=== PATIENT | female | born 1975 | race American Indian/Alaskan Native ===

== ENCOUNTER 2020-03-24 09:45 | Day surgery (SDC) | payer OTHER ==
[2020-03-23 09:02] LABS: Hematocrit 40.3 % (30.3-42.9); Hemoglobin 13.6 gm/dl (10.1-14.3); Mean Corpuscular HGB Conc 34 % (30-34); Mean Corpuscular Volume 90 fl (79-97); Platelet Count 325 K/mm3 (140-440); Red Blood Count 4.47 M/mm3 (3.65-5.03); Red Cell Distribution Width 14.1 % (13.2-15.2)
[2020-03-23 09:23] LABS: BUN/Creatinine Ratio 19; Blood Urea Nitrogen 15 mg/dL (7-17); Calcium 9.3 mg/dL (8.4-10.2); Hemolysis Index 11
--- NOTE | 2020-03-24 08:07 | Anesthesia Day of Surgery ---
Anesthesia Day of Surgery - Day of Surgery Patient Examined: Yes Patient H&P Reviewed: Yes Patient is NPO: Yes
--- NOTE | 2020-03-24 08:08 | Anesthesia Consultation ---
Anesthesia Consult and Med Hx Date of service: 03/24/20 - Airway Anesthetic Teeth Evaluation: Chipped, Bridges ROM Head & Neck: Adequate Mental/Hyoid Distance: Adequate Mallampati Class: Class II Intubation Access Assessment: Good - Pre-Operative Health Status ASA Pre-Surgery Classification: ASA2 Proposed Anesthetic Plan: General - Pulmonary Hx Smoking: No Hx Sleep Apnea: (SNORES) - Cardiovascular System Hx Hypertension: Yes (+2FS) - Central Nervous System Hx Back Pain: Yes (LOWER BACK) Hx Psychiatric Problems: No - Endocrine Hx Non-Insulin Dependent Diabetes: Yes - Hematic Hx Anemia: No Hx Sickle Cell Disease: No - Other Systems Hx Alcohol Use: Yes (OCC. WINE) Hx Substance Use: No Hx Cancer: No Hx Obesity: Yes
[~2020-03-24 09:45] MED LIST: ACETAMINOPHEN 500 MG TAB PO ONE; CELECOXIB 200 MG CAP PO NR; GABAPENTIN 300 MG CAP PO NR; HYDROmorphone 1 MG/1 ML INJ IV PRN; LACTATED RINGERS 1,000 ML IV SCH; LIDOCAINE 1%/EPINEPHRINE 1:100,000 VIAL (20 ML) INFILTRATI ONE; MAGNESIUM OXIDE 400 MG TAB PO ONE; MIDAZOLAM 2 MG/2 ML INJ IV NR; ONDANSETRON 4 MG/2 ML INJ IV PRN; SODIUM CHLORIDE 0.9% IRR 1,500 ML BOTTLE IR ONE; ceFAZolin/Water 2 GM/20 ML 2 GM/20 ML SYRINGE IV NR
[2020-03-24] MEDS ORDERED: ROCURONIUM 50 MG/5 ML INJ IV ONE (11:24)
[2020-03-24] MEDS ORDERED: MIDAZOLAM 2 MG/2 ML INJ ONE (11:24)
[2020-03-24] MEDS ORDERED: propofoL 200 MG/20 ML VIAL IV ONE (11:24)
[2020-03-24] MEDS ORDERED: LIDOCAINE MPF (2%) 20 MG/1 ML VIAL 5 ML ONE (11:24)
[2020-03-24] MEDS ORDERED: dexAMETHasone 20 MG/5 ML VIAL ONE ×2 (11:25→20:36)
[2020-03-24] MEDS ORDERED: KETAMINE/STERILE WATER 50 MG/ML SYRINGE ONE (11:25)
[2020-03-24] MEDS ORDERED: HYDROmorphone 1 MG/1 ML INJ ONE ×5 (11:26→17:04)
[2020-03-24] MEDS ORDERED: SODIUM CHLORIDE 0.9% 1000 ML 1,000 ML, EPINEPHrine/PF 1 mg/1 mL 1 MG, LIDOCAINE 1% 20 m... IJ SCH (11:30)
[2020-03-24] MEDS ORDERED: LIDOCAINE 1%/EPINEPHRINE 1:100,000 VIAL (20 ML) INFILTRATI ONE ×2 (12:14→12:30)
[2020-03-24] MEDS ORDERED: SODIUM CHLORIDE 0.9% IRR 1,500 ML BOTTLE IR ONE (13:05)
[2020-03-24] MEDS ORDERED: fentaNYL 100 MCG/2 ML INJ ONE ×2 (18:21→18:58)
[2020-03-24] MEDS ORDERED: SUGAMMADEX SODIUM 200 MG/2 ML VIAL IV ONE (18:28)
[2020-03-24] MEDS ORDERED: ALBUTEROL 8.5 GM INHALATION IH ONE (19:08)
[2020-03-24] MEDS ORDERED: EPINEPHrine RACEMIC 2.25% 0.5ML NEBU IH ONE ×4 (19:33→20:12)
[2020-03-24] MEDS ORDERED: SODIUM CHLORIDE FOR INHALATION NEBU 3 ML ONE ×2 (19:34→20:10)
[2020-03-24] MEDS ORDERED: MIDAZOLAM 2 MG/2 ML INJ IV SCH (19:48)
[2020-03-24] MEDS: HYDROmorphone 1 MG/1 ML INJ IV PRN ×2 (19:50→20:43)
--- NOTE | 2020-03-24 19:58 | Operative Report ---
Operative Report Operative Report: Plastic Surgery Operative Note Preoperative Diagnosis: Unacceptable cosmetic appearance Postopertive Diagnosis: Same Procedure: Full lipoabdominoplasty; Liposuction of the posterior waist and [place] butt lift with fat grafting to the butt and hips Surgeon: Dr. Frances Navarro Shaker Operator: GRAHAM Jaramillo Anesthesia: General endotracheal EBL: 100cc Indications: This patient is a 44 year old AAF who presented with a complaint of lost buttock fullness and volume after childbearing as well as excess fat and skin of the abdomen which got a lot worse with the way her scar healed. Since then she has also had stretch jacob on her abdomen and loose skin that affect her self confidence. She e desires a flat abdomen, and also to use the fat for grafting to her buttocks and hips. We discussed the benefits and risks of surgery including infection, bleeding, hematoma, seroma, scarring, fat necrosis, fat embolus, blood clots, pulmonary embolus, fat resorption, skin or umbilical necrosis, wound dehiscence, asymmetry and the need for further surgery. Patient understands and accepts these risks and desires to proceed with surgery. Informed consent was obtained. Procedure: After marking in preoperative holding the patient was brought into the operating room and placed supine on the OR table. After induction of adequate general endotracheal anesthesia, the patient's chest was prepped and draped in the usual sterile surgical fashion. To begin, markings were refreshed and 1% lidocaine with epinephrine was injected into the incisions. Using an 11 blade, cannula entry incisions were made in the lower abdomen, and 2 L of tumescent solution was infiltrated into the tissues of the abdomen and flanks. Power assisted liposcution was performed until aspirate was blood-tinged. We then began the tummy tuck portion of the procedure, creating a lower abdominal incision using a 10 blade, which was carried through subcutaneous tissue using the electrocautery. This dissection along the rectus fascia was carried cephalad to the xiphoid process. After which point rectus diastasis (measuring 5 cm at its widest) was repaired using 0 PDO Quill suture in 3 layers. The bed was then placed in a beach chair position and the lower abdominal pannus was marked and sharply excised. A 19 Fr Tao drain was placed and secured with a 2-0 Nylon suture and we began closure of her incisions in 3 layers beginning with a 0 PDO Quill suture to approximate Rabia's fascia follwed by 3-0 Monoderm Quill in 2 layers. The umbilicus was delivered through the abdominal skin flap and secured with 2-0 Monocryl and 4-0 subcuticular sutures. All incisions were then sealed with Dermabond. The patient was then placed in the prone position and once again cannula entry sites were injected with local anesthesia and opened with an 11 blade. 1 L of tumescent solution was infiltrated into the subcutaneous tissue of the posterior waist and lower back, and power assisted liposuction used to remove excess fat. Once satisfied with the contour we began the fat grafting portion of the procedure. Using blunt cannulas, fat was injected into the subcutaneous tissue of the buttocks and hips bilaterally until a desireable contour was achieved. A total of 1800cc of pure fat was injected into each side. Once fat grafting was complete, 4-0 Monocryl was used to close all cannula entry points. All areas where incisions were placed were then dressed with abdominal pads and the patient was then awakened from general anesthesia and her compression garment was placed. The patient was complaining of difficulty breathing and was noted to be tachycardic with fluctuating O2 saturations as low as 91 on room air. Given the nature of her surgery the decision was made to get a stat CT Angio of the chest to rule out pulmonary embolus. She was then transferred to CT scanner on a monitor with O2 via facemask. After imaging study was done she was transferred to PACU where she was given racemic epinephrine x2 and a total of 10mg of Decadron and monitored closely. Stridorous breathing resolved and she maintained O2 saturation on room air. Her condition improved markedly thereafter and she was discharged from recovery to home in stable condition.
[2020-03-24] MEDS ORDERED: INSULIN LISPRO 100 UNIT/ML SUB-Q ONE (20:08)
[2020-03-24] MEDS ORDERED: dexAMETHasone 4 MG/ML VIAL IV ONE (20:37)
--- NOTE | 2020-03-24 21:10 | Cat Scan Report ---
CTA CHEST WITH IV CONTRAST INDICATION: Status post liposuction and abdominal wall surgery/diff breathing CONTRAST: 100 cc Omnipaque 350 IV COMPARISON: None available. Three-plane MIP reconstructions were produced. All CT scans at this location are performed using CT d ose reduction for ALARA by means of automated exposure control. NOTE: Resolution is decreased and artifact is introduced by the patient's size. FINDINGS: No significant axillary lesions are seen. Views of the upper abdomen show mild fatty infilt ration of the liver. No internal upper, middle acute abnormalities are seen. However, there is rather diffuse subcutaneous emphysema seen in a bubbly pattern. There is also diffuse subcutaneous edema or inflammation, particularly in areas associated with this subcutaneous emphysema. I do not see signif icant separate areas emphysema and the chest with only a tiny amount seen anteriorly extending from t he abdominal region in the lower central chest. No pneumothorax or pneumomediastinum are seen. No obv ious pneumoperitoneum is noted. Lung jeronimo show no obvious nodules or masses. Minimal atelectasis th e left lower lobe. No areas of consolidation or other significant acute infiltrates are seen. No medi astinal or hilar masses are noted. Possibly trace pleural effusion on the left. No obvious endobronch ial lesions are seen. Aorta shows no aneurysmal dilatation or evidence of dissection. Adequate opacification of the pulmonary arterial system was achieved. I do not see convincing evidenc e of pulmonary thromboembolism. IMPRESSION: 1. No evidence of pulmonary thrombus was 2. No acute abnormalities are seen in the chest or within the upper abdomen 3. Extensive upper abdominal subcutaneous findings as above thought accounted for by the type of surg jyoti. Discussed with Dr. Navarro Signer Name: Dat Burr MD Signed: 03/24/2020 9:06 PM Workstation Name: [id number]
[2020-03-24] MEDS ORDERED: SODIUM CHLORIDE 0.9% 1000 ML 1,000 ML ONE (21:48)
--- NOTE | 2020-03-24 22:31 | Cat Scan Report ---
CT NECK WITH INTRAVENOUS CONTRAST AND MULTIPLANAR RECONSTRUCTION CLINICAL HISTORY: AIRWAY NARROWING, VOCAL CORD TRAUMA TECHNIQUE: 2.5 mm thick contiguous axial scans were obtained from the skull base down to the aortic arch during intravenous contrast administration. In addition to evaluation of axial source images sagittal and co amy multiplanar reconstructions were produced and reviewed for this report. FINDINGS: No abnormalities are seen along the course of the airway. Nasopharynx, oropharynx, hypopharynx, laryn x and visualized portions of the subglottic airway all have an unremarkable appearance. There is no i ndication of glottic or subglottic stenosis. There is no evidence of vocal cord paralysis. There is no indication of cervical lymphadenopathy. No abnormalities are seen in evaluation of the oral cavity and tongue. The floor the mouth has a norm al appearance. The parotid and submandibular salivary glands have a normal appearance. Evaluation of the nasal cavity reveals no abnormality. The paranasal sinuses are free from inflammato ry mucosal disease. Evaluation of the orbits reveals no abnormality. The thyroid gland is normal in size and homogeneous in attenuation. No focal thyroid lesions are iden tified. Evaluation of the cervical spine reveals no significant abnormality. Normal alignment is maintained. No significant degenerative changes are identified. Evaluation of the lung apices reveals no abnormality. There is no indication of lung nodule or infilt rate. The visualized portions of the superior mediastinum have an unremarkable appearance. Enhancement of normal vascular structures is demonstrated. No areas of abnormal contrast enhancement are identified. IMPRESSION: 1. No significant abnormalities are demonstrated on CT neck with intravenous contrast. 2. There is no indication of vocal cord paralysis or other abnormality along the course of the airway . All CT imaging studies performed at this facility utilize dose modulation, iterative reconstruction o r weight based dosing, if appropriate, to obtain the lowest achievable radiation dose. Signer Name: Felipe Gregory MD Signed: 03/24/2020 10:27 PM Workstation Name: [id number]
--- NOTE | 2020-03-24 22:53 | Post Anesthesia Evaluation ---
- Post Anesthesia Evaluation Patient Participated: Yes Airway Patent: Yes Stable Respiratory Function: Yes (Pt with significant stridor upon extubation. MUCH improved.) Nausea/Vomiting: No Temp > 96.8F: Yes Pain Manageable: Yes Adequeate Hydration: Yes Anesthesia Complications: No Block Receding Appropriately: Not Applicable Patient on Ventilator: No
[2020-03-25 00:09] VITALS: BP 120/82
== END 2020-03-24 09:46 | disposition home or self-care (01) ==
LOC: OR 09:45
PROVIDERS: ATTEND Plastic Surgery
DX: Z41.1 Encounter for cosmetic surgery (principal); I10 Essential (primary) hypertension; Z11.59 Encounter for screening for other viral diseases; G47.30 Sleep apnea, unspecified; E66.9 Obesity, unspecified; E11.9 Type 2 diabetes mellitus without complications; Z72.89 Other problems related to lifestyle; Z79.899 Other long term (current) drug therapy; Z87.440 Personal history of urinary (tract) infections; Z98.890 Other specified postprocedural states; Z68.31 Body mass index [BMI] 31.0-31.9, adult
CPT/HCPCS: 15771; 15772; 15830; 15847; 36415; 70491; 71275; 80048; 82962; 84703; 85027; J0171; J0690; J1100; J1170; J2250; J2704; J3010; J7030; J7120; Q9967; U0003; J1815

== ENCOUNTER 2020-04-08 11:45 | Inpatient (IN) | payer OTHER ==
--- NOTE | 2020-04-08 11:56 | Event Note ---
ED Screening Note ED Screening Note: DVT in 2001 after a knee surgery left left pain that began three days ago states she has left leg swelling no recent travel no SOB no CP PMHx DM, HTN no allergies to meds LNMP: 03/17/2020 This initial assessment/diagnostic orders/clinical plan/treatment(s) is/are subject to change based on patients health status, clinical progression and re- assessment by fellow clinical providers in the ED. Further treatment and workup at subsequent clinical providers discretion. Patient/guardian urged not to elope from the ED as their condition may be serious if not clinically assessed and managed. Initial orders include: labs, US
[2020-04-08 12:24] LABS: Basophils % (Auto) 0.4 % (0.0-1.8); Eosinophils # (Auto) 0.3 K/mm3 (0.0-0.4); Eosinophils % (Auto) 4.2 % (0.0-4.3); Hematocrit 29.9 % (30.3-42.9); Lymphocytes # (Auto) 1.5 K/mm3 (1.2-5.4); Mean Corpuscular HGB Conc 34 % (30-34); Mean Corpuscular Volume 91 fl (79-97); Monocytes # (Auto) 0.4 K/mm3 (0.0-0.8); Monocytes % (Auto) 5.7 % (0.0-7.3); Platelet Count 452 K/mm3 (140-440); Red Blood Count 3.27 M/mm3 (3.65-5.03); Red Cell Distribution Width 15.2 % (13.2-15.2)
[2020-04-08 12:35] LABS: INR 1.1 (0.87-1.13)
[2020-04-08 12:36] LABS: Partial Thromboplastin Time 31.5 Sec. (24.2-36.6)
[2020-04-08 12:44] LABS: Alanine Aminotransferase 19 units/L (7-56); Albumin 3.5 g/dL (3.9-5); BUN/Creatinine Ratio 18; Blood Urea Nitrogen 14 mg/dL (7-17); Calcium 8.9 mg/dL (8.4-10.2); Hemolysis Index 0
[2020-04-08] MEDS ORDERED: POTASSIUM CHLORIDE ER 20 MEQ TAB PO ONE ×2 (12:47→16:15)
--- NOTE | 2020-04-08 13:21 | Vascular Lab Report ---
DUPLEX DOPPLER LOWER EXTREMITY VEINS, BILATERAL INDICATION: LLE pain and swelling, RLE pain. TECHNIQUE: Duplex doppler imaging was performed through the veins of both lower extremities using venous tammy luis and other maneuvers. COMPARISON: None available. FINDINGS: Right Common Femoral vein: Echogenic material with lack of compressibility is noted. Right Superficial Femoral vein: Negative. Right Popliteal vein: Negative. Right Calf veins: Negative. Left Common Femoral vein: Echogenic material is present with lack of compressibility Left Superficial Femoral vein: Negative. Left Popliteal vein: Negative. Left Calf veins: Negative. Additional findings: Extensive echogenic material with lack of compressibility both greater saphenous veins IMPRESSION: 1. Deep venous and superficial venous thrombosis as noted involving both lower extremities Signer Name: Gregorio Beltre MD Signed: 04/08/2020 1:17 PM Workstation Name: [id number]
--- NOTE | 2020-04-08 14:14 | Emergency Department Report ---
ED General Adult HPI - General Chief complaint: Extremity Injury, Lower Stated complaint: LEGS SWOLLEN Time Seen by Provider: 04/08/20 11:54 Source: patient Mode of arrival: Ambulatory Limitations: No Limitations - History of Present Illness Initial comments: This is a 44-year-old female with left greater than right leg pain for the last several days. She is not on an anticoagulant. She has a history of DVT in 2001. She was anticoagulated at that time. She denies a history of pulmonary embolism. She denies chest pain or shortness of breath. She states she is not coughing. Said no hemoptysis. Her leg pain involves both sides but predominantly the left. She states that it "feels like a vein". Patient is 2 weeks status post abdominoplasty. -: Gradual, days(s) Radiation: non-radiation Quality: aching Consistency: intermittent Improves with: none Worsens with: none Associated Symptoms: denies other symptoms Treatments Prior to Arrival: none - Related Data Home Medications Medication Instructions Recorded Confirmed Last Taken Empagliflozin [Jardiance] 25 mg PO DAILY 03/17/20 03/24/20 03/23/20 09:00 Hydrochlorothiazide 12.5 mg PO DAILY 03/17/20 03/24/20 03/23/20 09:00 Losartan [Cozaar] 50 mg PO DAILY 03/17/20 03/24/20 03/23/20 09:00 Semaglutide [Ozempic] 0.5 mg SUB-Q 1XW 03/17/20 03/24/20 03/22/20 09:00 Allergies Allergy/AdvReac Type Severity Reaction Status Date / Time No Known Allergies Allergy Verified 04/08/20 11:46 ED Review of Systems ROS: Stated complaint: LEGS SWOLLEN Other details as noted in HPI Constitutional: denies: chills, fever Eyes: denies: eye pain, eye discharge, vision change ENT: denies: ear pain, throat pain Respiratory: denies: cough, shortness of breath, wheezing Cardiovascular: denies: chest pain, palpitations Endocrine: no symptoms reported Gastrointestinal: denies: abdominal pain, nausea, diarrhea Genitourinary: denies: urgency, dysuria, discharge Musculoskeletal: as per HPI. denies: back pain, joint swelling, arthralgia Skin: denies: rash, lesions Neurological: denies: headache, weakness, paresthesias Psychiatric: denies: anxiety, depression Hematological/Lymphatic: denies: easy bleeding, easy bruising ED Past Medical Hx - Past Medical History Hx Hypertension: Yes (+2FS) Hx Diabetes: Yes Hx GERD: No Hx Sickle Cell Disease: No Hx Tuberculosis: No Hx HIV: No - Surgical History Additional Surgical History: KNEE SURGERY/ TUMMY TUCK 2 WEEKS AGO - Social History Smoking Status: Never Smoker Substance Use Type: None - Medications Home Medications: Home Medications Medication Instructions Recorded Confirmed Last Taken Type Empagliflozin [Jardiance] 25 mg PO DAILY 03/17/20 03/24/20 03/23/20 09:00 History Hydrochlorothiazide 12.5 mg PO DAILY 03/17/20 03/24/20 03/23/20 09:00 History Losartan [Cozaar] 50 mg PO DAILY 03/17/20 03/24/20 03/23/20 09:00 History Semaglutide [Ozempic] 0.5 mg SUB-Q 1XW 03/17/20 03/24/20 03/22/20 09:00 History ED Physical Exam - General Limitations: No Limitations General appearance: alert, in no apparent distress - Head Head exam: Present: atraumatic, normocephalic - Eye Eye exam: Present: normal appearance. Absent: scleral icterus - ENT ENT exam: Present: mucous membranes moist - Neck Neck exam: Present: normal inspection - Respiratory Respiratory exam: Present: normal lung sounds bilaterally. Absent: respiratory distress - Cardiovascular Cardiovascular Exam: Present: regular rate, normal rhythm. Absent: systolic murmur, diastolic murmur, rubs, gallop - GI/Abdominal GI/Abdominal exam: Present: soft, normal bowel sounds, other (Abdominoplasty drain). Absent: distended, tenderness, guarding, rebound - Extremities Exam Extremities exam: Present: normal capillary refill, other (There is bilateral swelling and venous engorgement of the veins of the lower extremity. It is most prominent in the left thigh. The left calf is also swollen. There is tenderness bilaterally) - Back Exam Back exam: Present: normal inspection. Absent: CVA tenderness (R), CVA tenderness (L), muscle spasm, paraspinal tenderness, vertebral tenderness - Neurological Exam Neurological exam: Present: alert, oriented X3, CN II-XII intact. Absent: motor sensory deficit - Psychiatric Psychiatric exam: Present: normal affect, normal mood - Skin Skin exam: Present: warm, dry, intact, normal color. Absent: rash ED Course Vital Signs 04/08/20 11:50 Temperature 99.2 F Pulse Rate 87 Respiratory 20 Rate Blood Pressure 128/50 O2 Sat by Pulse 98 Oximetry - Reevaluation(s) Reevaluation #1: Nurses directed to gown patient. Standard heparin drip will be initiated. Vascular consult. Consider CTA. Admit to the hospitalist service. 04/08/20 14:17 ED Medical Decision Making - Lab Data Result diagrams: 04/08/20 12:01 04/08/20 12:01 Laboratory Results - last 24 hr 04/08/20 04/08/20 04/08/20 12:01 12:01 12:01 WBC 6.6 RBC 3.27 L Hgb 10.0 L Hct 29.9 L MCV 91 MCH 31 MCHC 34 RDW 15.2 Plt Count 452 H Lymph % (Auto) 23.0 [place] % (Auto) 5.7 Eos % (Auto) 4.2 Baso % (Auto) 0.4 Lymph # 1.5 [place] # 0.4 Eos # 0.3 Baso # 0.0 Seg Neutrophils % 66.7 Seg Neutrophils # 4.4 PT 14.0 INR 1.10 APTT 31.5 Sodium 138 Potassium 3.0 L Chloride 99.1 Carbon Dioxide 25 Anion Gap 17 BUN 14 Creatinine 0.8 Estimated GFR > 60 BUN/Creatinine Ratio 18 Glucose 96 Calcium 8.9 Total Bilirubin 0.90 AST 15 ALT 19 Alkaline Phosphatase 40 Total Protein 6.5 Albumin 3.5 L Albumin/Globulin Ratio 1.2 HCG, Qual 04/08/20 12:01 WBC RBC Hgb Hct MCV MCH MCHC RDW Plt Count Lymph % (Auto) [place] % (Auto) Eos % (Auto) Baso % (Auto) Lymph # [place] # Eos # Baso # Seg Neutrophils % Seg Neutrophils # PT INR APTT Sodium Potassium Chloride Carbon Dioxide Anion Gap BUN Creatinine Estimated GFR BUN/Creatinine Ratio Glucose Calcium Total Bilirubin AST ALT Alkaline Phosphatase Total Protein Albumin Albumin/Globulin Ratio HCG, Qual Negative Critical care attestation.: If time is entered above; I have spent that time in minutes in the direct care of this critically ill patient, excluding procedure time. ED Disposition Clinical Impression: Hypokalemia DVT, bilateral lower limbs Qualifiers: Affected thrombotic vein of extremity: femoral Chronicity: acute Qualified Code(s): I82.413 - Acute embolism and thrombosis of femoral vein, bilateral Anemia Qualifiers: Anemia type: unspecified type Qualified Code(s): D64.9 - Anemia, unspecified Disposition: OP ADMIT IP TO THIS HOSP Is pt being admited?: Yes Does the pt Need Aspirin: Yes Condition: Stable Referrals: PRIMARY CARE, [Primary Care Provider] - 3-5 Days Time of Disposition: 15:38
[2020-04-08] MEDS ORDERED: HEPARIN 10,000 UNITS/10 ML VIAL IV ONE (14:24)
[2020-04-08 15:11] LABS: Hematocrit 27.5 % (30.3-42.9); Hemoglobin 9.1 gm/dl (10.1-14.3)
--- NOTE | 2020-04-08 15:13 | XRay Report ---
CHEST 1 VIEW INDICATION: hypertension. COMPARISON: None FINDINGS: Support devices: None. Heart: Within normal limits. Lungs/Pleura: No acute air space or interstitial disease. Additional findings: None. IMPRESSION: 1. No acute findings. Signer Name: Eze Whittington MD Signed: 04/08/2020 3:08 PM Workstation Name: [id number]
[2020-04-08] MEDS: HEPARIN/ 0.45% NACL DRIP 25,000 UNIT/500 ML BAG IV SCH (15:20)
[2020-04-08 15:23] LABS: INR 1.1 (0.87-1.13); Partial Thromboplastin Time 30.8 Sec. (24.2-36.6)
[2020-04-08] MEDS ORDERED: HYDROmorphone 1 MG/1 ML INJ IV PRN (16:15)
[2020-04-08] MEDS ORDERED: HYDROmorphone 1 MG/1 ML INJ ONE (16:23)
[2020-04-08] MEDS: oxyCODONE /ACETAMINOPHEN 5-325MG TAB PO PRN (20:27)
[2020-04-08] MEDS ORDERED: ACETAMINOPHEN 325 MG TAB PO PRN (21:27)
[2020-04-08] MEDS ORDERED: ZOLPIDEM 5 MG TAB PO PRN (21:27)
[2020-04-08] MEDS: WARFARIN 7.5 MG TAB PO SCH (23:25)
[2020-04-08] MEDS: FAMOTIDINE 20 MG/2 ML INJ IV SCH (23:25)
[2020-04-08] MEDS: SODIUM CHLORIDE 0.45% 1000 ML 1,000 ML IV SCH (23:28)
[2020-04-08] MEDS: LOSARTAN 50 MG TAB PO SCH (23:47)
[2020-04-09] MEDS: INSULIN LISPRO 100 UNIT/ML SUB-Q SCH ×4 (00:40→22:20)
[2020-04-09 06:22] LABS: Basophils % (Auto) 0.5 % (0.0-1.8); Eosinophils # (Auto) 0.4 K/mm3 (0.0-0.4); Eosinophils % (Auto) 6.4 % (0.0-4.3); Hematocrit 24.1 % (30.3-42.9); Hemoglobin 7.9 gm/dl (10.1-14.3); Lymphocytes # (Auto) 2.7 K/mm3 (1.2-5.4); Lymphocytes % (Auto) 47.3 % (13.4-35.0); Mean Corpuscular HGB Conc 33 % (30-34); Mean Corpuscular Volume 93 fl (79-97); Monocytes # (Auto) 0.5 K/mm3 (0.0-0.8); Monocytes % (Auto) 9.2 % (0.0-7.3); Platelet Count 380 K/mm3 (140-440); Red Cell Distribution Width 15.4 % (13.2-15.2)
--- NOTE | 2020-04-09 06:32 | Event Note ---
Date: 04/08/20 See H/p in reports Sukumar LE DVT IVC filter// IR consult IV HEparin drip
[2020-04-09 06:51] LABS: Alanine Aminotransferase 14 units/L (7-56); Albumin 2.7 g/dL (3.9-5); BUN/Creatinine Ratio 20; Blood Urea Nitrogen 12 mg/dL (7-17); Calcium 8.2 mg/dL (8.4-10.2); Hemolysis Index 1
--- NOTE | 2020-04-09 08:59 | Progress Note ---
Assessment and Plan Assessment and plan: Bilateral DVT lower ext Doppler ultrasound confirms DVT Continue Heparin drip Vasc surgeon to see Patient had DVT lower ext in 2001 treated with anticoagulation Hypokalemia Replace and repeat Anemia Likely chronic Check Fe, TIBC,Vit B12,folate Hypertension Resume home meds Diabetes mellitus type 2 A1c 2.9, will repeat Hold anti-diabetics Full code status. History Interval history: Bilateral legs pain and swelling no chest pain Hospitalist Physical - Physical exam Narrative exam: GEN: Not in acute distress, obese, lying in bed HEENT: Normocephalic, atraumatic, Neck: supple, No JVD Lungs: Clear to auscultation bilaterally, heart;S1 and S2 reg, no murmurs, rubs or gallop Abd:soft, non tender, non distended, normal bowel sounds, Ext: Bilateral edema of legs, no clubbing, no cyanosis, Neuro: Awake,alert,oriented X3 , no focal signs, - Constitutional Vitals: Temp Pulse Resp BP Pulse Ox 98.3 F 71 20 96/41 98 04/09/20 08:04 04/09/20 08:04 04/09/20 08:04 04/09/20 08:04 04/09/20 08:04 Results - Labs CBC & Chem 7: 04/09/20 05:19 04/09/20 05:19 Labs: Laboratory Last Values WBC 5.7 K/mm3 (4.5-11.0) 04/09/20 05:19 RBC 2.60 M/mm3 (3.65-5.03) L 04/09/20 05:19 Hgb 7.9 gm/dl (10.1-14.3) L 04/09/20 05:19 Hct 24.1 % (30.3-42.9) L 04/09/20 05:19 MCV 93 fl (79-97) 04/09/20 05:19 MCH 31 pg (28-32) 04/09/20 05:19 MCHC 33 % (30-34) 04/09/20 05:19 RDW 15.4 % (13.2-15.2) H 04/09/20 05:19 Plt Count 380 K/mm3 (140-440) 04/09/20 05:19 Lymph % (Auto) 47.3 % (13.4-35.0) H 04/09/20 05:19 [place] % (Auto) 9.2 % (0.0-7.3) H 04/09/20 05:19 Eos % (Auto) 6.4 % (0.0-4.3) H 04/09/20 05:19 Baso % (Auto) 0.5 % (0.0-1.8) 04/09/20 05:19 Lymph # 2.7 K/mm3 (1.2-5.4) 04/09/20 05:19 [place] # 0.5 K/mm3 (0.0-0.8) 04/09/20 05:19 Eos # 0.4 K/mm3 (0.0-0.4) 04/09/20 05:19 Baso # 0.0 K/mm3 (0.0-0.1) 04/09/20 05:19 Seg Neutrophils % 36.6 % (40.0-70.0) L 04/09/20 05:19 Seg Neutrophils # 2.1 K/mm3 (1.8-7.7) 04/09/20 05:19 PT 14.0 Sec. (12.2-14.9) 04/08/20 14:55 INR 1.10 (0.87-1.13) 04/08/20 14:55 APTT 30.8 Sec. (24.2-36.6) 04/08/20 14:55 Heparin Anti-Xa Level 0.81 U.I./ml (0.3-0.7) H 04/09/20 05:19 Sodium 139 mmol/L (137-145) 04/09/20 05:19 Potassium 3.2 mmol/L (3.6-5.0) L 04/09/20 05:19 Chloride 103.8 mmol/L (98-107) 04/09/20 05:19 Carbon Dioxide 26 mmol/L (22-30) 04/09/20 05:19 Anion Gap 12 mmol/L 04/09/20 05:19 BUN 12 mg/dL (7-17) 04/09/20 05:19 Creatinine 0.6 mg/dL (0.7-1.2) L 04/09/20 05:19 Estimated GFR > 60 ml/min 04/09/20 05:19 BUN/Creatinine Ratio 20 % 04/09/20 05:19 Glucose 78 mg/dL (65-100) 04/09/20 05:19 POC Glucose 87 (70-105) 04/09/20 08:04 Hemoglobin A1c 2.9 % (4-6) L 04/09/20 05:19 Calcium 8.2 mg/dL (8.4-10.2) L 04/09/20 05:19 Total Bilirubin 0.60 mg/dL (0.1-1.2) 04/09/20 05:19 AST 13 units/L (5-40) 04/09/20 05:19 ALT 14 units/L (7-56) 04/09/20 05:19 Alkaline Phosphatase 31 units/L (35-129) L 04/09/20 05:19 Total Protein 5.6 g/dL (6.3-8.2) L 04/09/20 05:19 Albumin 2.7 g/dL (3.9-5) L 04/09/20 05:19 Albumin/Globulin Ratio 0.9 % 04/09/20 05:19 HCG, Qual Negative (Negative) 04/08/20 12:01 Whalen/IV: IV Catheter Type [Right INT / Saline Lock Antecubital] Active Medications - Current Medications Current Medications: Generic Name Dose Route Start Last Admin Trade Name Freq PRN Reason Stop Dose Admin Acetaminophen 650 mg 04/08/20 21:27 Tylenol PO Q4H PRN Pain MILD(1-3)/Fever >100.5/TALAMANTES Famotidine 20 mg 04/08/20 22:00 04/08/20 23:25 Pepcid IV 20 mg BID CASS Administration Hydromorphone HCl 1 mg 04/08/20 16:15 04/08/20 16:32 Dilaudid IV 1 mg Q3H PRN Administration Pain , Severe (7-10) Heparin Sodium/Sodium Chloride 25,000 unit in 500 mls @ 23 mls/hr 04/08/20 15:00 04/08/20 23:37 Heparin/ 0.45% Nacl-25,000 Unit/500 Ml IV 1,050 units/hr TITR CASS 21 mls/hr Titration Protocol 1,150 UNITS/HR Sodium Chloride 1,000 mls @ 75 mls/hr 04/08/20 22:00 06/04/20 23:28 Nacl 0.45% 1000 Ml IV 75 mls/hr DIRECT CASS Administration Insulin Human Lispro 0 unit 04/08/20 22:00 04/09/20 08:51 Humalog SUB-Q Not Given ACHS [facility] Protocol Losartan Potassium 100 mg 04/08/20 22:00 04/08/20 23:47 Cozaar PO Not Given DAILY [facility] Miscellaneous Medication 0.5 mg 04/11/20 21:30 Semaglutide [Ozempic] SUB-Q 1XW [facility] Ondansetron HCl 4 mg 04/08/20 21:27 Zofran IV Q8H PRN Nausea And Vomiting Oxycodone/Acetaminophen 2 tab 04/08/20 20:10 04/08/20 20:27 Percocet 5/325 PO 2 tab Q6H PRN Administration Pain, Moderate (4-6) Potassium Chloride 40 meq 04/09/20 08:00 K-Dur PO 04/09/20 12:01 Q4H CASS Sodium Chloride 10 ml 04/08/20 22:00 04/08/20 23:29 Sodium Chloride Flush Syringe 10 Ml IV 10 ml BID CASS Administration Sodium Chloride 10 ml 04/08/20 21:27 Sodium Chloride Flush Syringe 10 Ml IV PRN PRN LINE FLUSH Warfarin Sodium 7.5 mg 04/08/20 22:00 04/08/20 23:25 Coumadin PO 7.5 mg DAILY@1700 CASS Administration Zolpidem Tartrate 5 mg 04/08/20 21:27 Ambien PO QHS PRN Insomnia
[2020-04-09] MEDS: LOSARTAN 50 MG TAB PO SCH (09:28)
[2020-04-09] MEDS: FAMOTIDINE 20 MG/2 ML INJ IV SCH (09:53)
[2020-04-09] MEDS: POTASSIUM CHLORIDE ER 20 MEQ TAB PO SCH ×2 (09:53→12:32)
[2020-04-09] MEDS: ONDANSETRON 4 MG/2 ML INJ IV PRN (09:53)
[2020-04-09] MEDS: oxyCODONE /ACETAMINOPHEN 5-325MG TAB PO PRN (10:00)
[2020-04-09 11:08] LABS: Iron 34 ug/dL (37-170); Total Iron Binding Capacity 212 mcg/dL (250-450)
--- NOTE | 2020-04-09 12:06 | History and Physical Report ---
CHIEF COMPLAINT: Bilateral lower extremity swelling ____ 1 week. HISTORY OF PRESENT ILLNESS: A 44-year-old female with swelling of both lower extremities, especially the left greater than right. The patient has a history of DVT in ____ leg pain involves both the legs extending up to the groin. The patient has a history of diabetes and hypertension. PAST MEDICAL HISTORY: As mentioned, hypertension and diabetes. PAST SURGICAL HISTORY: Knee surgery, tummy tuck 2 weeks ago. SOCIAL HISTORY: Never a smoker. FAMILY HISTORY: Hypertension. REVIEW OF SYSTEMS: Significant for bilateral lower extremity swelling. Recent tummy tuck with drains still present. Tummy tuck about a week ago. No fever or chills. Otherwise, review of systems negative. PHYSICAL EXAMINATION: GENERAL: Middle-aged female, cooperative during examination. VITAL SIGNS: Temperature 97.7, pulse rate is 78, respiratory rate is 16, sats are 98%, blood pressure is 105/48. HEENT: Unremarkable. Pupils equal and reactive. NECK: Supple, no lymphadenopathy, no thyromegaly. LUNGS: Clear to auscultation with good air entry. CARDIOVASCULAR SYSTEM: S1, S2 heard. No gallop, no murmur, no rub. Apical impulse in the left fifth intercostal space in the midclavicular line. ABDOMEN: Soft and benign. No hepatosplenomegaly. ____ Normal bowel sounds are noted. EXTREMITIES: Both lower extremities are swollen up from the mid calf up to the ____ thigh bilaterally. Nontender. ____ pulses are felt. CENTRAL NERVOUS SYSTEM: Alert and oriented x 3. Nonfocal exam. SKIN: Normal. LABORATORY DATA: Significant for hemoglobin of 9.1 and hematocrit of 27.5. Electrolytes are normal. Potassium is ____. Lower extremity ____ shows bilateral deep vein thrombosis. Right common femoral and right superficial femoral vein are negative. Right common femoral vein echogenic material ____ noted. Left common femoral vein echogenic material ____. Left superficial femoral vein is negative. Left popliteal vein is negative. Left calf vein is negative. Additional findings of extensive echogenic material ____ greater saphenous veins. Final impression is deep venous and superficial venous thrombosis involving both lower extremities. ASSESSMENT AND PLAN: 1. Bilateral deep venous thrombosis. The patient was initiated on IV heparin and also Coumadin for better control of the deep vein thrombosis. IR consult was requested for possible ____ placement. The patient has a tendency for severe pulmonary embolism. 2. Hypertension. Continue antihypertensives. 3. Type 2 diabetes. Continue oral hypoglycemics and coverage. Check hemoglobin A1c. 4. Deep venous thrombosis prophylaxis. The patient on IV heparin and also gastrointestinal prophylaxis. JOB# [id number] VSM/NTS
[2020-04-09] MEDS: SODIUM CHLORIDE 0.45% 1000 ML 1,000 ML IV SCH (12:33)
[2020-04-09] MEDS: HEPARIN/ 0.45% NACL DRIP 25,000 UNIT/500 ML BAG IV SCH (13:46)
[2020-04-09] MEDS: WARFARIN 7.5 MG TAB PO SCH (19:00)
[2020-04-09] MEDS: FAMOTIDINE 20 MG TAB PO SCH (22:21)
--- NOTE | 2020-04-10 00:15 | Consultation ---
History of Present Illness - Reason for Consult Consult date: 04/10/20 Bilateral Lower Extremity DVT Requesting physician: MAXIME TIDWELL - History of Present Illness \ Patient is a 44-year-old female with a history of DVT in her left lower extremity back in 2001. She had an additional DVT in 2002 both were related to surgical procedures. The patient went to the emergency department with a complaint of 4 days of bilateral lower extremity swelling with her left thigh significantly larger than her right. She states that her left foot began to swell prior to the entire leg swelling although she began wearing compression socks. She did take Coumadin for DVT back in the past however she was no longer on it. The patient had an abdominoplasty performed approximately 2 weeks ago and states that she has been doing some ambulating shortly after after the opera tion however. Shortness of breath or chest pain. She has no additional complaints at this time. Past History Past Medical History: hypertension, hyperlipidemia Medications and Allergies Allergies Allergy/AdvReac Type Severity Reaction Status Date / Time No Known Allergies Allergy Verified 04/08/20 11:46 Home Medications Medication Instructions Recorded Confirmed Last Taken Type Empagliflozin [Jardiance] 25 mg PO DAILY 03/17/20 03/24/20 03/23/20 09:00 History Hydrochlorothiazide 12.5 mg PO DAILY 03/17/20 03/24/20 03/23/20 09:00 History Losartan [Cozaar] 50 mg PO DAILY 03/17/20 03/24/20 03/23/20 09:00 History Semaglutide [Ozempic] 0.5 mg SUB-Q 1XW 03/17/20 03/24/20 03/22/20 09:00 History Active Meds: Active Medications Acetaminophen (Tylenol) 650 mg PO Q4H PRN PRN Reason: Pain MILD(1-3)/Fever >100.5/TALAMANTES Famotidine (Pepcid) 20 mg PO BID CASS Last Admin: 04/09/20 22:21 Dose: 20 mg Documented by: Hydromorphone HCl (Dilaudid) 1 mg IV Q3H PRN PRN Reason: Pain , Severe (7-10) Last Admin: 04/08/20 16:32 Dose: 1 mg Documented by: Heparin Sodium/Sodium Chloride (Heparin/ 0.45% Nacl-25,000 Unit/500 Ml) 25,000 unit in 500 mls @ 23 mls/hr IV TITR [facility]; Protocol Last Titration: 04/09/20 18:53 Dose: 950 units/hr, 19 mls/hr Documented by: Sodium Chloride (Nacl 0.45% 1000 Ml) 1,000 mls @ 75 mls/hr IV DIRECT [facility] Last Admin: 04/09/20 12:33 Dose: 75 mls/hr Documented by: Insulin Human Lispro (Humalog) 0 unit SUB-Q ACHS [facility]; Protocol Last Admin: 04/09/20 22:20 Dose: Not Given Documented by: Losartan Potassium (Cozaar) 100 mg PO DAILY [facility] Last Admin: 04/09/20 09:28 Dose: Not Given Documented by: Miscellaneous Medication (Semaglutide [Ozempic]) 0.5 mg SUB-Q 1XW [facility] Ondansetron HCl (Zofran) 4 mg IV Q8H PRN PRN Reason: Nausea And Vomiting Last Admin: 04/09/20 09:53 Dose: 4 mg Documented by: Oxycodone/Acetaminophen (Percocet 5/325) 2 tab PO Q6H PRN PRN Reason: Pain, Moderate (4-6) Last Admin: 04/09/20 10:00 Dose: 2 tab Documented by: Sodium Chloride (Sodium Chloride Flush Syringe 10 Ml) 10 ml IV BID [facility] Last Admin: 04/09/20 22:21 Dose: 10 ml Documented by: Sodium Chloride (Sodium Chloride Flush Syringe 10 Ml) 10 ml IV PRN PRN PRN Reason: LINE FLUSH Last Admin: 04/09/20 09:54 Dose: 10 ml Documented by: Warfarin Sodium (Coumadin) 7.5 mg PO DAILY@1700 [facility] Last Admin: 04/09/20 19:00 Dose: 7.5 mg Documented by: Zolpidem Tartrate (Ambien) 5 mg PO QHS PRN PRN Reason: Insomnia Exam - Constitutional Vitals: Temp Pulse Resp BP Pulse Ox 98.2 F 69 16 93/48 100 04/09/20 23:16 04/09/20 23:16 04/09/20 23:16 04/09/20 23:16 04/09/20 23:16 General appearance: Present: no acute distress - Neck Neck: Present: supple - Cardiovascular Rhythm: regular - Extremities Extremities: no ischemia, pulses intact (Palpable DP pulses bilaterally) Extremity abnormal: edema (Mild edema in the left lower extremity, left thigh is tender to palpation) - Musculoskeletal Musculoskeletal: strength equal bilaterally - Psychiatric Psychiatric: appropriate mood/affect Results - Labs CBC & Chem 7: 04/10/20 04:37 04/10/20 04:37 Labs: Abnormal lab results 04/09/20 04/09/20 04/09/20 Range/Units 05:19 05:19 05:19 RBC 2.60 L (3.65-5.03) M/mm3 Hgb 7.9 L (10.1-14.3) gm/dl Hct 24.1 L (30.3-42.9) % RDW 15.4 H (13.2-15.2) % Lymph % (Auto) 47.3 H (13.4-35.0) % Early % (Auto) 9.2 H (0.0-7.3) % Eos % (Auto) 6.4 H (0.0-4.3) % Seg Neutrophils % 36.6 L (40.0-70.0) % Heparin Anti-Xa Level (0.3-0.7) U.I./ml Potassium 3.2 L (3.6-5.0) mmol/L Creatinine 0.6 L (0.7-1.2) mg/dL POC Glucose (70-105) Hemoglobin A1c 2.9 L (4-6) % Calcium 8.2 L (8.4-10.2) mg/dL Iron (37-170) ug/dL TIBC (250-450) mcg/dL Alkaline Phosphatase 31 L (35-129) units/L Total Protein 5.6 L (6.3-8.2) g/dL Albumin 2.7 L (3.9-5) g/dL 04/09/20 04/09/20 04/09/20 Range/Units 05:19 10:12 10:12 RBC (3.65-5.03) M/mm3 Hgb (10.1-14.3) gm/dl Hct (30.3-42.9) % RDW (13.2-15.2) % Lymph % (Auto) (13.4-35.0) % Early % (Auto) (0.0-7.3) % Eos % (Auto) (0.0-4.3) % Seg Neutrophils % (40.0-70.0) % Heparin Anti-Xa Level 0.81 H 0.78 H (0.3-0.7) U.I./ml Potassium (3.6-5.0) mmol/L Creatinine (0.7-1.2) mg/dL POC Glucose (70-105) Hemoglobin A1c (4-6) % Calcium (8.4-10.2) mg/dL Iron 34 L (37-170) ug/dL TIBC 212 L (250-450) mcg/dL Alkaline Phosphatase (35-129) units/L Total Protein (6.3-8.2) g/dL Albumin (3.9-5) g/dL 04/09/20 04/09/20 Range/Units 17:48 20:23 RBC (3.65-5.03) M/mm3 Hgb (10.1-14.3) gm/dl Hct (30.3-42.9) % RDW (13.2-15.2) % Lymph % (Auto) (13.4-35.0) % Early % (Auto) (0.0-7.3) % Eos % (Auto) (0.0-4.3) % Seg Neutrophils % (40.0-70.0) % Heparin Anti-Xa Level 0.29 L (0.3-0.7) U.I./ml Potassium (3.6-5.0) mmol/L Creatinine (0.7-1.2) mg/dL POC Glucose 114 H (70-105) Hemoglobin A1c (4-6) % Calcium (8.4-10.2) mg/dL Iron (37-170) ug/dL TIBC (250-450) mcg/dL Alkaline Phosphatase (35-129) units/L Total Protein (6.3-8.2) g/dL Albumin (3.9-5) g/dL - Imaging and Cardiology Venous US: report reviewed, image reviewed Assessment and Plan Patient is a 44-year-old female with a history of previous DVTs in her left lower extremity who presents with extensive acute bilateral lower extremity DVTs involving the femoral popliteal veins as well as the tibial veins and SVTs approximately 2 weeks after abdominoplasty. At this time she is not a candidate for thrombolysis as this has the potential for bleeding secondary to her recent operation. She is on a heparin drip and had an initial drop in her hemoglobin without any obvious signs of bleeding so this may have been a lab or dilutional however given her previous medical history of hypertension and her current relative hypotension with elevated heart rate this is likely accurate. If she continues to show active signs of bleeding she may require placement of an IVC filter and cessation of anticoagulation. If her hemoglobin stabilizes I will recommend converting her to oral anticoagulation with Eliquis 5 mg p.o. BID. for minimum of 3 to 6 months. She should also have a hematology evaluation to rule out a hypercoagulable disorder prior to stopping her anticoagulation. I will also have her follow-up in the office in 2 weeks to evaluate her symptoms. If the patient continues to have significant pain and swelling at that time I may consider performing a percutaneous procedure to debulk the thrombus with possible mechanical thrombectomy as well as thrombolytics. I discussed this plan with the patient who expressed understanding and agrees with the plan. I provided her with a card with our office information as well as discount cards for a 30-day free supply of Eliquis and the insurance discount card.
[2020-04-10 05:59] LABS: Hematocrit 24.2 % (30.3-42.9); Hemoglobin 7.9 gm/dl (10.1-14.3); Mean Corpuscular HGB Conc 33 % (30-34); Mean Corpuscular Volume 94 fl (79-97); Platelet Count 407 K/mm3 (140-440); Red Blood Count 2.59 M/mm3 (3.65-5.03); Red Cell Distribution Width 15.2 % (13.2-15.2)
[2020-04-10 06:08] LABS: INR 1.1 (0.87-1.13)
[2020-04-10 06:15] LABS: BUN/Creatinine Ratio 13; Blood Urea Nitrogen 9 mg/dL (7-17); Calcium 8.3 mg/dL (8.4-10.2); Hemolysis Index 3
[2020-04-10] MEDS: ONDANSETRON 4 MG/2 ML INJ IV PRN (07:21)
[2020-04-10] MEDS: INSULIN LISPRO 100 UNIT/ML SUB-Q SCH ×2 (08:25→12:52)
[2020-04-10] MEDS ORDERED: DOCUSATE SODIUM 100 MG CAP PO SCH (09:00)
[2020-04-10] MEDS ORDERED: POLYETHYLENE GLYCOL 3350 17 GM POWDER PO PRN (09:36)
[2020-04-10] MEDS: LOSARTAN 50 MG TAB PO SCH (09:46)
[2020-04-10] MEDS: FAMOTIDINE 20 MG TAB PO SCH (09:47)
--- NOTE | 2020-04-10 11:18 | Progress Note ---
Hospitalist Physical - Constitutional Vitals: Temp Pulse Resp BP Pulse Ox 98.9 F 66 20 96/47 98 04/10/20 07:17 04/10/20 09:01 04/10/20 07:17 04/10/20 07:17 04/10/20 07:17 General appearance: Present: no acute distress Results - Labs CBC & Chem 7: 04/10/20 04:37 04/10/20 04:37 Labs: Laboratory Last Values WBC 6.2 K/mm3 (4.5-11.0) 04/10/20 04:37 RBC 2.59 M/mm3 (3.65-5.03) L 04/10/20 04:37 Hgb 7.9 gm/dl (10.1-14.3) L 04/10/20 04:37 Hct 24.2 % (30.3-42.9) L 04/10/20 04:37 MCV 94 fl (79-97) 04/10/20 04:37 MCH 31 pg (28-32) 04/10/20 04:37 MCHC 33 % (30-34) 04/10/20 04:37 RDW 15.2 % (13.2-15.2) 04/10/20 04:37 Plt Count 407 K/mm3 (140-440) 04/10/20 04:37 Lymph % (Auto) 47.3 % (13.4-35.0) H 04/09/20 05:19 Hardy % (Auto) 9.2 % (0.0-7.3) H 04/09/20 05:19 Eos % (Auto) 6.4 % (0.0-4.3) H 04/09/20 05:19 Baso % (Auto) 0.5 % (0.0-1.8) 04/09/20 05:19 Lymph # 2.7 K/mm3 (1.2-5.4) 04/09/20 05:19 Hardy # 0.5 K/mm3 (0.0-0.8) 04/09/20 05:19 Eos # 0.4 K/mm3 (0.0-0.4) 04/09/20 05:19 Baso # 0.0 K/mm3 (0.0-0.1) 04/09/20 05:19 Seg Neutrophils % 36.6 % (40.0-70.0) L 04/09/20 05:19 Seg Neutrophils # 2.1 K/mm3 (1.8-7.7) 04/09/20 05:19 PT 14.0 Sec. (12.2-14.9) 04/10/20 04:37 INR 1.10 (0.87-1.13) 04/10/20 04:37 APTT 30.8 Sec. (24.2-36.6) 04/08/20 14:55 Heparin Anti-Xa Level 0.52 U.I./ml (0.3-0.7) 04/09/20 23:51 Sodium 140 mmol/L (137-145) 04/10/20 04:37 Potassium 3.6 mmol/L (3.6-5.0) 04/10/20 04:37 Chloride 105.4 mmol/L (98-107) 04/10/20 04:37 Carbon Dioxide 26 mmol/L (22-30) 04/10/20 04:37 Anion Gap 12 mmol/L 04/10/20 04:37 BUN 9 mg/dL (7-17) 04/10/20 04:37 Creatinine 0.7 mg/dL (0.7-1.2) 04/10/20 04:37 Estimated GFR > 60 ml/min 04/10/20 04:37 BUN/Creatinine Ratio 13 % 04/10/20 04:37 Glucose 114 mg/dL (65-100) H 04/10/20 04:37 POC Glucose 135 (70-105) H 04/10/20 08:31 Hemoglobin A1c 2.9 % (4-6) L 04/09/20 05:19 Calcium 8.3 mg/dL (8.4-10.2) L 04/10/20 04:37 Iron 34 ug/dL (37-170) L 04/09/20 10:12 TIBC 212 mcg/dL (250-450) L 04/09/20 10:12 Ferritin 174.8 ng/mL (13.0-400.0) 04/09/20 10:12 Total Bilirubin 0.60 mg/dL (0.1-1.2) 04/09/20 05:19 AST 13 units/L (5-40) 06/05/20 05:19 ALT 14 units/L (7-56) 04/09/20 05:19 Alkaline Phosphatase 31 units/L (35-129) L 04/09/20 05:19 Total Protein 5.6 g/dL (6.3-8.2) L 04/09/20 05:19 Albumin 2.7 g/dL (3.9-5) L 04/09/20 05:19 Albumin/Globulin Ratio 0.9 % 04/09/20 05:19 Vitamin B12 502.3 pg/mL (211-911) 04/09/20 10:12 Folate 12.84 ng/mL (7.3-26.0) 04/09/20 10:12 HCG, Qual Negative (Negative) 04/08/20 12:01 Whalen/IV: Voiding Method Toilet IV Catheter Type [Right INT / Saline Lock Antecubital] Active Medications - Current Medications Current Medications: Generic Name Dose Route Start Last Admin Trade Name Freq PRN Reason Stop Dose Admin Acetaminophen 650 mg 04/08/20 21:27 Tylenol PO Q4H PRN Pain MILD(1-3)/Fever >100.5/TALAMANTES Docusate Sodium 100 mg 04/10/20 09:00 04/10/20 09:47 Colace PO 100 mg BID CASS Administration Famotidine 20 mg 04/09/20 22:00 04/10/20 09:47 Pepcid PO 20 mg BID CASS Administration Hydromorphone HCl 1 mg 04/08/20 16:15 04/08/20 16:32 Dilaudid IV 1 mg Q3H PRN Administration Pain , Severe (7-10) Heparin Sodium/Sodium Chloride 25,000 unit in 500 mls @ 23 mls/hr 04/08/20 15:00 04/10/20 00:55 Heparin/ 0.45% Nacl-25,000 Unit/500 Ml IV 950 units/hr TITR CASS 19 mls/hr Titration Protocol 1,150 UNITS/HR Sodium Chloride 1,000 mls @ 75 mls/hr 04/08/20 22:00 04/09/20 12:33 Nacl 0.45% 1000 Ml IV 75 mls/hr DIRECT CASS Administration Insulin Human Lispro 0 unit 04/08/20 22:00 04/10/20 08:25 Humalog SUB-Q Not Given ACHS CASS Protocol Losartan Potassium 100 mg 04/08/20 22:00 04/10/20 09:46 Cozaar PO 100 mg DAILY CASS Administration Ondansetron HCl 4 mg 04/08/20 21:27 04/10/20 07:21 Zofran IV 4 mg Q8H PRN Administration Nausea And Vomiting Oxycodone/Acetaminophen 2 tab 04/08/20 20:10 04/09/20 10:00 Percocet 5/325 PO 2 tab Q6H PRN Administration Pain, Moderate (4-6) Polyethylene Glycol 17 gm 04/10/20 09:36 04/10/20 09:47 Miralax 3350 PO 17 gm QDAY PRN Administration Constipation Sodium Chloride 10 ml 04/08/20 22:00 04/10/20 10:06 Sodium Chloride Flush Syringe 10 Ml IV Not Given BID CASS Sodium Chloride 10 ml 04/08/20 21:27 04/09/20 09:54 Sodium Chloride Flush Syringe 10 Ml IV 10 ml PRN PRN Administration LINE FLUSH Warfarin Sodium 10 mg 04/10/20 17:00 Coumadin PO DAILY@1700 CASS Zolpidem Tartrate 5 mg 04/08/20 21:27 Ambien PO QHS PRN Insomnia Nutrition/Malnutrition Assess - Dietary Evaluation Nutrition/Malnutrition Findings: Nutrition Notes Start: 04/09/20 12:41 Freq: Status: Active Protocol: Document 04/09/20 12:41 LM (Rec: 04/09/20 12:45 LM [id number]) Nutrition Notes Need for Assessment generated from: Education Initial or Follow up Brief Note Subjective/Other Information DNI screen. Pt is eating well and with no wt loss. Educated pt on vitamin K/Coumadin interaction. #1 Nutrition Diagnosis Food and nutrition-related knowledge deficit Etiology no prior vitamin K/Coumadin interaction education As Evidenced by Signs and Symptoms pt wanting education Nutrition Intervention Teaching Recipient Patient Learning Readiness Good Teaching Methods Discussion,Handout Response to Teaching Verbalize understanding Education Handouts Provided Vitamin K and Interactions Barriers to Learning No Barriers RD phone number provided Yes Patient aware of follow up options Yes Revisit per MD consult or patient Sign Off request:
[2020-04-10] MEDS: oxyCODONE /ACETAMINOPHEN 5-325MG TAB PO PRN (14:58)
[2020-04-10 15:14] LABS: Hematocrit 26.2 % (30.3-42.9); Hemoglobin 8.6 gm/dl (10.1-14.3)
--- NOTE | 2020-04-10 15:19 | Discharge Summary ---
Providers - Providers Date of Admission: 04/08/20 15:39 Date of discharge: 04/10/20 Attending physician: MAXIME TIDWELL 04/08/20 15:36 Consult to Physician [CONS] Urgent Comment: Consulting Provider: BRYON BUNN Physician Instructions: Reason For Exam: Extensive DVT Primary care physician: ADOLFO KEE Hospitalization Condition: Fair Hospital course: Patient is 44-year-old female with pain both legs, left worse than right pain for several days. She states she had a DVT in 2001, was on anticoagulation and completed treatment. She denies a history of pulmonary embolism. She denies chest pain or shortness of breath. She was seen and evaluated in Emergency Department. Doppler revealed DVT both lower extremities. She was admitted, evaluated by Vasc Surgeon. Vascular surgeon recommended Eliquis and outpatient follow up. She was anemic, but stool occult blood negative, so was discharged home on Eliquis. Bilateral DVT lower ext Doppler ultrasound confirms DVT Treated with Heparin drip,converted to Eliquis Hypokalemia Replaced Anemia Likely chronic Checked Fe, TIBC,Vit B12,folate Hypertension Resumed home meds Diabetes mellitus type 2 Total time spent on discharge, 33 mins Disposition: DC-01 TO HOME OR SELFCARE Core Measure Documentation - Palliative Care Palliative Care/ Comfort Measures: Not Applicable - Core Measures Any of the following diagnoses?: DVT/PE - VTE Discharge Requirements Deep Vein Thrombosis/Pulmonary Embolism Present on Admission: Yes Has pt received <5 days of overlap therapy or INR<2.0: No Anticoagulant overlap therapy prescribed at discharge: No Contraindication No Overlap Therapy order at DC: Not Indicated (Eliquis) Exam - Constitutional Vitals: Temp Pulse Resp BP Pulse Ox 98.9 F 66 20 96/47 98 04/10/20 07:17 04/10/20 09:01 04/10/20 07:17 04/10/20 07:17 04/10/20 07:17 Plan Activity: advance as tolerated Diet: low fat, low cholesterol, low salt Additional Instructions: 1.Follow up with PCP in 1 week. 2.Follow up with Dr. Wei, Vasc Surg in 1 week. 3.Follow up with Maintenance Superintendent of choice or Dr. Baxter,Maintenance Superintendent. Plan of Treatment: 1.Follow up with PCP in 1 week. 2.Follow up with Dr. Wei Vasc Surg in 1 week 3.Follow up with Maintenance Superintendent of choice or Dr. Baxter,Maintenance Superintendent. Follow up with: PRIMARY CARE, [Referring] - 3-5 Days Prescriptions: Apixaban [Eliquis] 5 mg PO Q12HR #60 tablet Famotidine [Pepcid] 20 mg PO BID #60 tablet traMADoL [Ultram 50 MG tab] 50 mg PO Q8H PRN #10 tablet PRN Reason: Pain
[2020-04-10] MEDS ORDERED: APIXABAN 5 MG TAB PO SCH (16:00)
[2020-04-10 16:17] VITALS: BP 108/49
[2020-04-10] MEDS ORDERED: WARFARIN 10 MG TAB PO SCH (17:00)
[2020-04-11] MEDS ORDERED: SEMAGLUTIDE 0.5 MG SUB-Q SCH (21:30)
== END 2020-04-10 17:19 | disposition home or self-care (01) | DRG 301 ==
LOC: ED 11:45 → 4A 15:39
PROVIDERS: ADMIT Internal Medicine; ATTEND Internal Medicine
DX: I82.493 Acute embolism and thrombosis of other specified deep vein of lower extremity, bilateral (principal); E87.6 Hypokalemia; D64.9 Anemia, unspecified; I10 Essential (primary) hypertension; E78.5 Hyperlipidemia, unspecified; E11.9 Type 2 diabetes mellitus without complications; Z79.899 Other long term (current) drug therapy
CPT/HCPCS: 36415; 71045; 80048; 80053; 82270; 82607; 82728; 82747; 82962; 83036; 83550; 84703; 85014; 85018; 85025; 85027; 85049; 85520; 85610; 85730; 93005; 93970; G0378; J1170; J1644; J2405; J7030

== ENCOUNTER 2020-04-30 06:42 | Day surgery (SDC) | payer OTHER ==
[2020-04-30] MEDS ORDERED: SODIUM CHLORIDE 0.9% 500 ML 500 ML ONE ×2 (07:39→09:42)
[2020-04-30 07:41] LABS: Hematocrit 29.9 % (30.3-42.9); Mean Corpuscular HGB Conc 34 % (30-34); Mean Corpuscular Volume 90 fl (79-97); Platelet Count 408 K/mm3 (140-440); Red Blood Count 3.33 M/mm3 (3.65-5.03); Red Cell Distribution Width 16.2 % (13.2-15.2)
[2020-04-30 07:50] LABS: INR 1.12 (0.87-1.13)
[2020-04-30 07:51] LABS: Partial Thromboplastin Time 28.6 Sec. (24.2-36.6)
[2020-04-30] MEDS ORDERED: SODIUM CHLORIDE 0.9% 500 ML 500 ML IV SCH (08:00)
[2020-04-30 09:17] LABS: BUN/Creatinine Ratio 9; Blood Urea Nitrogen 6 mg/dL (7-17); Calcium 9.1 mg/dL (8.4-10.2); Hemolysis Index 0
[2020-04-30 09:23] LABS: Anisocytosis 1+; Band Neutrophils # (Manual) 0.1 K/mm3; Platelet Estimate Consistent w Auto; Total Cells Counted 100
[2020-04-30] MEDS ORDERED: HEPARIN 10,000 UNITS/10 ML VIAL ONE (09:37)
[2020-04-30] MEDS ORDERED: HEPARIN/NS 5000 UNIT/500ML 1,000 ML IR ONE (09:37)
[2020-04-30] MEDS ORDERED: LIDOCAINE 1%/EPINEPHRINE 1:100,000 VIAL (20 ML) INFILTRATI ONE ×2 (09:37→11:27)
[2020-04-30] MEDS: MIDAZOLAM 2 MG/2 ML INJ ONE ×4 (10:08→11:20)
[2020-04-30] MEDS: fentaNYL 100 MCG/2 ML INJ ONE ×4 (10:08→11:20)
[2020-04-30] MEDS: LIDOCAINE 1%/EPINEPHRINE 1:100,000 VIAL (20 ML) INFILTRATI ONE ×2 (10:54→11:04)
[2020-04-30] MEDS ORDERED: HYDROmorphone 1 MG/1 ML INJ ONE (11:59)
[2020-04-30] MEDS ORDERED: HEPARIN/NS 5000 UNIT/500ML 500 ML IR ONE (12:06)
[2020-04-30] MEDS ORDERED: diphenhydrAMINE 50 MG/ML VIAL ONE (12:14)
[2020-04-30] MEDS ORDERED: MIDAZOLAM 2 MG/2 ML INJ ONE (12:14)
[2020-04-30] MEDS ORDERED: APIXABAN 5 MG TAB ONE (12:30)
--- NOTE | 2020-04-30 12:39 | Short Stay Summary ---
Short Stay Documentation Date of service: 04/30/20 Narrative H&P: See H&P - History Principal diagnosis: Subacute Bilateral Extremity H&P: obtained from office - Allergies and Medications Current Medications: Allergies No Known Allergies Allergy (Verified 04/08/20 11:46) Home Medications Medication Instructions Recorded Confirmed Last Taken Type Empagliflozin [Jardiance] 25 mg PO DAILY 03/17/20 04/30/20 03/26/20 History 25 mg Hydrochlorothiazide 12.5 mg PO DAILY 03/17/20 04/30/20 03/23/20 09:00 History Losartan [Cozaar] 50 mg PO DAILY 03/17/20 04/30/20 03/23/20 09:00 History Semaglutide [Ozempic] 0.5 mg SUB-Q 1XW 03/17/20 04/30/20 03/22/20 09:00 History Apixaban [Eliquis] 5 mg PO Q12HR #60 tablet 04/10/20 04/30/20 04/29/20 Rx 5 mg HYDROcodone/APAP 7.5-325 [Vancourt 1 tab PO BID PRN 04/30/20 04/30/20 04/29/20 History 7.5-325 mg TAB] 1 methOCARBAMOL [Robaxin TAB] 500 mg PO DAILY 04/30/20 04/30/20 04/29/20 History 500 mg Active Medications Sodium Chloride (Nacl 0.9% 500 Ml) 500 mls @ 50 mls/hr IV DIRECT CASS Last Admin: 04/30/20 08:10 Dose: 50 mls/hr Documented by: - Brief post op/procedure progress note Date of procedure: 04/30/20 Pre-op diagnosis: Subacute Bilateral Lower Extremity DVT Post-op diagnosis: same Procedure: 1. Ultrasound-Guided Access Right Internal Jugular Vein 2. Diagnostic Inferior Venacavogram 3. Placement of [place] Inferior Vena Cava Filter 4. Ultrasound-Guided Access of Right Popliteal Vein 5. Ultrasound-Guided Access Left Popliteal Vein 6. Diagnostic Right Lower Extremity Venogram (No Previous Films for Comparison) 7. Diagnostic Left Lower Extremity Venogram (No Previous Films for Comparison) 8. Percutaneous Mechanical Thrombectomy of Left External Iliac Vein with Inari ClotTriever 9. Percutaneous Mechanical Thrombectomy of Left Common Femoral Vein And Femoral Vein with Inari ClotTriever 10. Monitored Moderate Sedation (Total Anesthesia Time 160 Minutes) 11. Radiologic Supervision with Interpretation Anesthesia: local, other (Moderate Monitored Sedation) Surgeon: MUKUL DAVEY Estimated blood loss: minimal Pathology: list (Chronic Thrombus) Specimen disposition: discarded Condition: stable - Disposition Condition at discharge: Good Disposition: DC-01 TO HOME OR SELFCARE Short Stay Discharge Plan Activity: other (No strenuous activity for 24 hours) Wound: remove dressing (Remove the pressure dressings in 4 hours), other (Okay to shower and wash the wounds with soap and water but do not soak in water for 48 hours) Follow up with: MUKUL DAVEY MD [Staff Physician] - 05/06/20 1:15 pm Prescriptions: HYDROcodone/APAP 7.5-325 [Vancourt 7.5/325] 1 each PO Q6HR PRN #30 tablet PRN Reason: Pain
[2020-04-30] MEDS ORDERED: HYDROcodone/ACETAMINOPHEN 5-325 MG TAB PO PRN (12:57)
--- NOTE | 2020-04-30 12:57 | Operative Report ---
Operative Report Operative Report: Date of procedure: 04/30/2020 Pre-operative diagnosis: Subacute Bilateral Lower Extremity DVT Post-operative diagnosis: Same Procedure(s): 1. Ultrasound-Guided Access Right Internal Jugular Vein 2. Diagnostic Inferior Venacavogram 3. Placement of Mayi Inferior Vena Cava Filter 4. Ultrasound-Guided Access of Right Popliteal Vein 5. Ultrasound-Guided Access Left Popliteal Vein 6. Diagnostic Right Lower Extremity Venogram (No Previous Films for Comparison) 7. Diagnostic Left Lower Extremity Venogram (No Previous Films for Comparison) 8. Percutaneous Mechanical Thrombectomy of Left External Iliac Vein with Inari ClotTriever 9. Percutaneous Mechanical Thrombectomy of Left Common Femoral Vein And Femoral Vein with Inari ClotTriever 10. Monitored Moderate Sedation 11. Radiologic Supervision with Interpretation Surgeon: Edilson Wei MD Quarter Supervisor: None Anesthesia: 1% Lidocaine/Monitored Moderate Sedation Total Anesthesia Time: 160 minutes EBL: None Counts: Correct Complications: None Condition: Stable Specimen: None Indication: The patient is a 44-year-old female with a history of a DVT in the past who recently underwent an abdominoplasty. Shortly after the procedure she developed bilateral lower extremity swelling and was diagnosed with bilateral lower e xtremity DVTs. She was started on anticoagulation and was discharged on oral anticoagulation however she returned to our office with complaints of worsening swelling and pain. She was set up for a diagnostic venogram with possible percutaneous mechanical thrombectomy. She was given the risk, benefits, and alternative procedures and consented to the procedure. Venogram Findings: The central venogram revealed that the inferior vena cava was patent without any evidence of thrombus or flow-limiting stenosis. The inferior vena cava filter was placed at the body of L2 without any evidence of tilt. The right lower extremity venogram revealed that the popliteal vein, superficial femoral vein, femoral vein, external iliac vein, and common femoral vein were patent without any evidence of thrombus or flow-limiting stenosis. The left lower extremity venogram revealed that the popliteal vein had evidence of chronic thrombus with chronically stenotic distal portion of approximately 60% with multiple collaterals distally. The superficial femoral vein had evidence of 60 to 70% stenosis. There was approximately 50% stenosis of the common femoral vein with evidence of chronic thrombus within the vein. There was approximately 75% stenosis of the distal external iliac vein with chronic thrombus present. There was approximately 95% stenosis of the proximal external iliac vein and distal common iliac vein. The proximal common iliac vein appeared to be patent without thrombus or flow-limiting stenosis. After intervention there was minimal residual thrombus remaining in the common femoral and distal external iliac vein with improved flow however all areas of stenosis remained. Description of Procedure: The patient was brought into the construction laborer and laid in supine position, after adequate sedation the patient was prepped and draped in normal sterile fashion. Ultrasound was used to identify the right common femoral vein and the overlying skin and soft tissue was anesthetized with lidocaine. A small stab incision was made and the access needle was used with ultrasound guidance to enter the right common femoral vein. An 035 J-wire was advanced into the inferior vena cava under fluoroscopic guidance and a 5 Russian sheath was placed by Seldinger technique. A 5 Russian pigtail catheter was advanced just above the confluence of the iliac veins and inferior venacavogram was performed that demonstrated normal caliber of the inferior vena cava as well as the level of the renal veins. It also demonstrated the inferior vena cava was free of thrombus. The wire was reinserted and the pigtail catheter was removed leaving the wire in place and then the 5 Russian sheath was removed. The filter delivery sheath was advanced by Seldinger technique into the inferior vena cava with the tip well above the level of the renal veins. The filter was then inserted and positioned at the body of L2 The delivery sheath was withdrawn deploying the filter in place without any evidence of tilt. The sheath was then removed and the neck incision was closed with a 3-0 Vicryl in interrupted fashion and Dermabond for the skin. The sterile field was broken and the patient was moved to the stretcher and then placed back on the fluoroscopy table in prone position. Her bilateral popliteal fossa's were then prepped and draped in normal sterile fashion. Ultrasound was used to identify the right popliteal vein and the skin and overlying soft tissue was anesthetized with lidocaine. An 11 blade was used to make a small stab incision and then a 21-gauge micropuncture needle was used with ultrasound guidance to enter the right popliteal vein. A 0.018 micropuncture wire was advanced to the needle into the vein and after removing the needle the micropuncture sheath was advanced by Seldinger technique. The wire and inner dilator were removed and a 0.035 Bentson wire was advanced into the central venous system. The micropuncture sheath was then exchanged for a 5 Russian sheath. A diagnostic right lower extremity venogram was performed with the previously described findings. I then used ultrasound to identify the left popliteal vein and the overlying skin and soft tissue was anesthetized with lidocaine. I used a 21-gauge micropuncture needle with ultrasound guidance to enter the left popliteal vein and then a 0.018 micropuncture wire was advanced into the vein. The needle was removed and exchanged for a micropuncture sheath by Seldinger technique. The wire and dilator were removed and a 0.035 Bentson wire was advanced into the vein and after removing the micropuncture sheath a 5 Russian sheath was placed by Seldinger technique. A diagnostic venogram was then performed with the previously described findings. I then used an Omni Flush catheter and a 0.035 floppy Glidewire through the right popliteal sheath to advance up and over the bifurcation. I exchanged the Omni Flush catheter for a 4 Russian glide catheter and was able to advance the catheter and wire into the superficial femoral vein. I then used a snare through the left popliteal sheath to snare the Glidewire and pulled the wire through the left popliteal sheath so that now I had the patient body flossed. I removed the glide catheter and advanced it from the left popliteal sheath over the bifurcation through the right popliteal sheath and then remove the Glidewire and then advanced a 0.035 Amplatz wire through the glide catheter, while holding both ends, until the wire was in the right popliteal vein. I then removed the glide catheter and at this point I systemically heparinized the patient with 5000 units of heparin IV. I then removed the 5 Russian sheath from the left popliteal vein and serially dilated up the track until I could placed the 16 Russian sheath that was required for the Inari ClotTriever Device. Once the sheath was in place I advanced the ClotTriever device to the bifurcation and then deployed the retrieval basket and pulled this back to retrieve thrombus. I performed this 3 additional times with the basket configured four separate directions in an attempt to scrape the thrombus off of all 4 iqbal. There was some chronic thrombus retrieved in the basket however there was not a significant amount but the follow-up venogram revealed minimal residual thrombus in the common femoral vein and distal external iliac vein however the stenosis remained and will likely require stenting at some point where she would be at increased risk of recurrent DVT given the poor outflow through the left venous system. I then used a 2-0 Ethilon in pursestring fashion and placed this around the 16 Russian site and cinched it down as the sheath was being removed. A sterile dressing as well as a pressure dressing were then applied to the site. The 5 Russian sheath was then removed from the right popliteal access site and manual pressure was held until hemostasis was achieved and then a sterile dressing and pressure dressing were applied and the patient was transported to the recovery area in stable condition.
[2020-04-30 13:52] VITALS: BP 139/71
[2020-04-30] MEDS ORDERED: APIXABAN 5 MG TAB PO SCH (22:00)
== END 2020-04-30 14:00 | disposition home or self-care (01) ==
LOC: CATHLABREC 06:42
PROVIDERS: ATTEND Surgery Vascular Surgery
DX: I82.403 Acute embolism and thrombosis of unspecified deep veins of lower extremity, bilateral (principal); D64.9 Anemia, unspecified; G62.9 Polyneuropathy, unspecified; E11.51 Type 2 diabetes mellitus with diabetic peripheral angiopathy without gangrene; E11.42 Type 2 diabetes mellitus with diabetic polyneuropathy; Z79.899 Other long term (current) drug therapy; I10 Essential (primary) hypertension; G47.30 Sleep apnea, unspecified; E66.9 Obesity, unspecified; Z87.440 Personal history of urinary (tract) infections; Z72.89 Other problems related to lifestyle; Z98.890 Other specified postprocedural states; Z68.36 Body mass index [BMI] 36.0-36.9, adult
CPT/HCPCS: 37187; 37191; 75822; 76937; 80048; 85025; 85610; 85730; 99156; 99157; C1757; C1769; C1773; C1880; C1887; C1894; J1170; J1200; J1644; J2250; J3010; J7040; Q9967